=== PATIENT | male | born 1990 | race Hispanic/Latino ===

== ENCOUNTER 2019-04-26 12:08 | Emergency (ER) | payer SELFPAY ==
[2019-04-26 12:15] VITALS: BP 144/76
[2019-04-26] MEDS ORDERED: IBUPROFEN 600 MG TAB PO ONE (13:08)
[2019-04-26] MEDS ORDERED: TETANUS,DIPH,PERTUSS(ACELL) VACCINE 0.5 ML SYRINGE IM ONE (13:11)
--- NOTE | 2019-04-26 13:11 | Emergency Department Report ---
ED Upper Extremity Inj HPI - General Chief Complaint: Extremity Injury, Upper Stated Complaint: RT HAND PAIN Time Seen by Provider: 04/26/19 13:04 Source: patient Mode of arrival: Ambulatory Limitations: No Limitations - History of Present Illness Initial Comments: Patient is 28 years old male with no significant past medical history. Patient presented to the ER complaining of injury to the palm of the right hands. Patient stated that he fell on a phone private client advisor and it went into his palm of the right hand. Patient denied any other injuries. Patient also denied any fever or chills. Patient does not remember the last time he had a tetanus shot that he said is definitely more than 10 years. Complaint: Injury to:: right, hand - Related Data Previous Rx's Medication Instructions Recorded Last Taken Type Naproxen [Naprosyn] 500 mg PO BID #14 tablet 04/26/19 Unknown Rx cephALEXin [Keflex] 500 mg PO Q8HR #28 cap 04/26/19 Unknown Rx Allergies Allergy/AdvReac Type Severity Reaction Status Date / Time No Known Allergies Allergy Unverified 04/26/19 12:12 ED Review of Systems ROS: Stated complaint: RT HAND PAIN Other details as noted in HPI Comment: All other systems reviewed and negative Constitutional: denies: chills, fever Respiratory: denies: cough Cardiovascular: denies: chest pain Gastrointestinal: denies: abdominal pain, nausea Musculoskeletal: denies: back pain Neurological: denies: headache, weakness, numbness, paresthesias, confusion ED Past Medical Hx - Past Medical History Previous Medical History?: No - Surgical History Past Surgical History?: No - Social History Smoking Status: Current Every Day Smoker Substance Use Type: Alcohol - Medications Home Medications: Home Medications Medication Instructions Recorded Confirmed Last Taken Type Naproxen [Naprosyn] 500 mg PO BID #14 tablet 04/26/19 Unknown Rx cephALEXin [Keflex] 500 mg PO Q8HR #28 cap 04/26/19 Unknown Rx ED Physical Exam - General Limitations: No Limitations General appearance: alert, in no apparent distress - Head Head exam: Present: atraumatic, normocephalic, normal inspection - Eye Eye exam: Present: normal appearance - ENT ENT exam: Present: normal exam, normal orophraynx, mucous membranes moist - Respiratory Respiratory exam: Present: normal lung sounds bilaterally - Expanded Upper Extremity Exam Right Hand Wrist exam: Present: tenderness, abrasion, laceration. Absent: swelling, ecchymosis, deformity, crepidus, dislocation, amputation, nail avulsion, subungual hematoma Neuro motor exam: Present: wrist extension intact, thumb opposition intact, thumb IP flexion intact, thumb adduction intact, fingers 2-5 abduction intact Neurosensory exam: Present: 2-point discrimination, radial nerve intact, ulnar nerve intact, median nerve intact Vascular: Present: normal capillary refill - Neurological Exam Neurological exam: Present: alert, oriented X3 ED Course Vital Signs 04/26/19 12:13 Temperature 97.5 F L Pulse Rate 103 H Respiratory 16 Rate Blood Pressure 144/76 O2 Sat by Pulse 97 Oximetry ED Medical Decision Making - Radiology Data Radiology results: report reviewed - Medical Decision Making Patient is 28 years old male with no significant past medical history. Patient presented to the ER complaining of injury to the palm of the right hands. Patient stated that he fell on a phone private client advisor and it went into his palm of the right hand. Patient denied any other injuries. Patient also denied any fever or chills. Patient does not remember the last time he had a tetanus shot that he said is definitely more than 10 years. Right hand x-ray is negative for foreign body or any other abnormalities. Patient received tetanus shot in the ER. Patient is started on Keflex and Naprosyn and advised to follow-up with his primary care physician the next 2-3 days and to return to the ER if symptoms are not improved. Critical care attestation.: If time is entered above; I have spent that time in minutes in the direct care of this critically ill patient, excluding procedure time. ED Disposition Clinical Impression: Hand injury Disposition: DC- TO HOME OR SELFCARE Is pt being admited?: No Condition: Stable Instructions: Laceration (ED) Prescriptions: cephALEXin [Keflex] 500 mg PO Q8HR #28 cap Naproxen [Naprosyn] 500 mg PO BID #14 tablet Referrals: [facility] [Provider Group] - 3-5 Days Forms: Work/School Release Form(ED)
--- NOTE | 2019-04-26 14:14 | XRay Report ---
Right hand 2 views INDICATION: Right hand pain. IMPRESSION: No foreign body appreciated. No fracture or subluxation. Signer Name: Rangel Augustine MD Signed: 04/26/2019 2:09 PM Workstation Name: [id number]
== END 2019-04-26 15:18 | disposition home or self-care (01) ==
LOC: ED 12:08
DX: S61.411A Laceration without foreign body of right hand, initial encounter (principal); F17.200 Nicotine dependence, unspecified, uncomplicated; F10.10 Alcohol abuse, uncomplicated; Z79.899 Other long term (current) drug therapy; W18.39XA Other fall on same level, initial encounter; Y93.89 Activity, other specified; Y92.89 Other specified places as the place of occurrence of the external cause; Y99.8 Other external cause status
CPT/HCPCS: 90471; 90715